=== PATIENT | male | born 1970 | race Caucasian/White ===

== ENCOUNTER 2017-09-01 01:07 | Emergency (ER) | payer OTHER ==
[2017-09-01] MEDS ORDERED: Ketorolac Tromethamine 30 MG/ML VIAL ONE (01:52)
[2017-09-01] MEDS ORDERED: Morphine 10 MG/ML VIAL ONE (01:52)
--- NOTE | 2017-09-01 08:22 | RAD ---
TWO VIEWS OF THE LEFT HIP: HISTORY: Hurt hip at work with left hip pain. FINDINGS: This exam was submitted for interpretation at 8:15 a.m. on 09/01/17. There is no evidence of acute fr acture or dislocation. No degenerative changes are seen in the left hip. IMPRESSION: Unremarkable exam. POS: [id number]
== END 2017-09-01 02:25 | disposition home or self-care (01) ==
LOC: MADERS 01:07
DX: S76.112A Strain of left quadriceps muscle, fascia and tendon, initial encounter (principal); E78.2 Mixed hyperlipidemia; F17.210 Nicotine dependence, cigarettes, uncomplicated; W01.0XXA Fall on same level from slipping, tripping and stumbling without subsequent striking against object, initial encounter
CPT/HCPCS: 96374; 96375; J1885; J2270